=== PATIENT | male | born 1950 | race Caucasian/White ===

== ENCOUNTER 2019-08-24 03:09 | Inpatient (IN) | payer SELFPAY ==
[2019-08-24] VITALS (23 sets, daily range): BP systolic 96–152; BP diastolic 47–73
[~2019-08-24] VITALS: Ht 165.1 cm; Wt 70.8 kg
[2019-08-24] MEDS ORDERED: ONDANSETRON HCL 4MG/2ML INJ IV STA (03:48)
[2019-08-24] MEDS ORDERED: SODIUM CHLORIDE 0.9% 1,000 ML IV ONE (03:48)
[2019-08-24 04:12] LABS: HEMATOCRIT. 54.9 % (42.0-52.0); HEMOGLOBIN. 17.3 g/dL (14.0-18.0); MEAN CORPUSCULAR HEMOGLOBIN 29.9 pg (28.0-32.0); MEAN CORPUSCULAR VOLUME 94.8 fL (80.0-94.0); MEAN PLATELET VOLUME 10.3 fl (7.4-10.4); PLATELET 199 x1000/uL (130-400); RED BLOOD CELL COUNT 5.79 mill/uL (4.7-6.1); RED CELL DISTRIBUTION WIDTH 14.5 % (11.6-14.6)
[2019-08-24 04:20] LABS: CLARITY URINE CLEAR (CLEAR); COLOR URINE YELLOW (YELLOW); KETONES URINE 3+ (NEGATIVE); LEUKOCYTE ESTERASE URINE NEGATIVE (NEGATIVE); NITRITE URINE NEGATIVE (NEGATIVE); OCCULT BLOOD URINE 1+ (NEGATIVE); PROTEIN URINE 1+ (NEGATIVE); SPECIFIC GRAVITY URINE 1.032 (1.005-1.030); UROBILINOGEN URINE 0.2 E.U./dL (0.2-1.0)
[2019-08-24 04:59] LABS: *AMPHETAMINES SCREEN URINE NEGATIVE (NEGATIVE); *BARBITURATES SCREEN URINE NEGATIVE (NEGATIVE); *BENZODIAZEPINES SCREEN URINE NEGATIVE (NEGATIVE); *COCAINE SCREEN URINE NEGATIVE (NEGATIVE); METHADONE URINE SCREEN NEGATIVE (NEGATIVE); OPIATES URINE SCREEN NEGATIVE (NEGATIVE)
[2019-08-24 05:00] LABS: CANNABINOID URINE SCREEN NEGATIVE (NEGATIVE); PHENCYCLIDINE URINE SCREEN NEGATIVE (NEGATIVE)
[2019-08-24] MEDS ORDERED: INSULIN REGULAR (DRIP) 100 UNITS in SODIUM CHLORIDE 0.9% 99 ML IV SCH ×2 (05:30→06:00)
[2019-08-24 05:39] LABS: BG CARBOXYHEMOGLOBIN 0.1 % (0.5-1.5); BG DEOXYHEMOGLOBIN 6.4 % (0.0-5.0); BG FRACTION INSPIRED OXYGEN 21; BG HCO3 ACT 4.3 mmol/L (22.0-26.0); BG METHEMOGLOBIN 0.3 % (0.0-1.5); BG OXYGEN SATURATION 93.6 % (92.0-98.5); BG OXYHEMOGLOBIN 93.2 % (94.0-97.0); BG PCO2 15.5 mmHg (35.0-45.0); BG PH 7.058 (7.350-7.450); BG PO2 79.9 mmHg (75.0-100.0); BG SAMPLE SITE RIGHT RADIAL; BG TOTAL HEMOGLOBIN 17.2 g/dL (12.0-18.0); BG VENT MODE ROOM AIR
[2019-08-24 06:17] LABS: CHLORIDE 103 mEq/L (98-107)
[2019-08-24 06:26] LABS: ETHANOL BLOOD < 10 mg/dL
[2019-08-24] MEDS ORDERED: AZITHROMYCIN 500 MG in DEXT 5% WATER 250 ML IV ONE (06:45)
[2019-08-24] MEDS ORDERED: SODIUM CHLORIDE 0.9% 1000ML BAG (SEPSIS BOLUS) IV ONE (06:45)
[2019-08-24] MEDS ORDERED: CEFTRIAXONE 1 G PREMIX 50 ML IV ONE (06:45)
[2019-08-24] MEDS ORDERED: CEFTRIAXONE 1 G PREMIX 50 ML IV SCH (08:15)
[2019-08-24] MEDS ORDERED: ONDANSETRON HCL 4MG/2ML INJ IV PRN (08:15)
[2019-08-24 08:16] LABS: PLATELET ESTIMATE NORMAL
[2019-08-24 08:53] LABS: PHOSPHORUS 3.2 mg/dL (2.5-4.9)
[2019-08-24] MEDS ORDERED: AZITHROMYCIN 500 MG TABLET PO SCH (09:00)
[2019-08-24] MEDS: SODIUM CHLORIDE 0.9% 1,000 ML IV SCH ×2 (09:48→12:14)
[2019-08-24] MEDS ORDERED: INSULIN REGULAR (DRIP) 100 UNITS in SODIUM CHLORIDE 0.9% 99 ML IV PRN (12:00)
[2019-08-24] MEDS: ENOXAPARIN 40MG/0.4ML SYR SUBCUT SCH (12:13)
[2019-08-24] MEDS: PANTOPRAZOLE SODIUM 40 MG/VIAL IV SCH (12:14)
[2019-08-24 13:16] LABS: CHLORIDE 118 mEq/L (98-107)
[2019-08-24] MEDS: DEXT 5%/0.45% NACL 1000ML 1,000 ML IV SCH ×2 (14:46→23:55)
[2019-08-24] MEDS: POTASSIUM CHLORIDE 20MEQ TABLET SR PO NR ×2 (14:46→18:10)
[2019-08-24] MEDS: LACTULOSE 20G/30ML UDC PO SCH ×2 (14:46→22:00)
[2019-08-24 16:36] LABS: CHLORIDE 121 mEq/L (98-107)
[2019-08-24] MEDS ORDERED: POTASSIUM CHLORIDE 20MEQ TABLET SR PO NR (18:00)
[2019-08-24] MEDS: TAMSULOSIN HCL 0.4MG SR CAPSULE PO SCH (18:11)
[2019-08-24] MEDS ORDERED: DEXTROSE 50% WATER 50ML SYRINGE IV PRN ×2 (18:45)
[2019-08-24] MEDS: BLOOD SUGAR DIAGNOSTIC STRIP TEST SCH ×6 (19:19→23:52)
[2019-08-24] MEDS ORDERED: POTASSIUM CHLORIDE INJ 40 MEQ in DEXT 5% WATER 250 ML IV NR (19:30)
[2019-08-24 20:35] LABS: CHLORIDE 119 mEq/L (98-107)
[2019-08-24] MEDS: INSULIN REGULAR (DRIP) 100 UNITS in SODIUM CHLORIDE 0.9% 100 ML IV SCH ×2 (21:18→22:14)
[2019-08-24] MEDS ORDERED: RACEPINEPHRINE 2.25% 0.5ML NEB VIAL HHN PRN (23:30)
[2019-08-24 23:54] LABS: BG CARBOXYHEMOGLOBIN 0.8 % (0.5-1.5); BG DEOXYHEMOGLOBIN 7.9 % (0.0-5.0); BG FRACTION INSPIRED OXYGEN 32; BG HCO3 ACT 15.1 mmol/L (22.0-26.0); BG METHEMOGLOBIN 0.2 % (0.0-1.5); BG OXYHEMOGLOBIN 91.1 % (94.0-97.0); BG PCO2 28.7 mmHg (35.0-45.0); BG PO2 54.8 mmHg (75.0-100.0); BG SAMPLE SITE RIGHT RADIAL; BG TOTAL HEMOGLOBIN 15.4 g/dL (12.0-18.0); BG VENT MODE NASAL CANNULA
[2019-08-25] VITALS (55 sets, daily range): BP systolic 90–211; BP diastolic 43–151
[2019-08-25 01:13] LABS: CHLORIDE 119 mEq/L (98-107)
[2019-08-25] MEDS: BLOOD SUGAR DIAGNOSTIC STRIP TEST SCH ×25 (01:16→23:46)
[2019-08-25] MEDS ORDERED: KCL 20MEQ/100ML PREMIX 100 ML IV SCH ×2 (04:00→06:00)
[2019-08-25 05:32] LABS: CHLORIDE 121 mEq/L (98-107)
[2019-08-25 05:33] LABS: HEMATOCRIT. 43.7 % (42.0-52.0); HEMOGLOBIN. 14.9 g/dL (14.0-18.0); MEAN CORPUSCULAR HEMOGLOBIN 30.1 pg (28.0-32.0); MEAN CORPUSCULAR VOLUME 88.2 fL (80.0-94.0); MEAN PLATELET VOLUME 10.3 fl (7.4-10.4); PLATELET 135 x1000/uL (130-400); RED BLOOD CELL COUNT 4.96 mill/uL (4.7-6.1); RED CELL DISTRIBUTION WIDTH 13.7 % (11.6-14.6)
[2019-08-25] MEDS: LACTULOSE 20G/30ML UDC PO SCH (06:13)
[2019-08-25] MEDS: DEXT 5%/0.45% NACL 1000ML 1,000 ML IV SCH ×3 (06:28→17:39)
[2019-08-25 06:41] LABS: PHOSPHORUS 0.9 mg/dL (2.5-4.9)
[2019-08-25] MEDS ORDERED: CEFTRIAXONE 1 G PREMIX 50 ML IV SCH (08:00)
[2019-08-25 08:25] LABS: CHLORIDE 120 mEq/L (98-107)
[2019-08-25] MEDS: CEFTRIAXONE 1 G PREMIX 50 ML IV SCH (09:35)
[2019-08-25] MEDS: TAMSULOSIN HCL 0.4MG SR CAPSULE PO SCH (09:36)
[2019-08-25] MEDS: METOPROLOL TARTRATE 25MG TABLET PO SCH ×3 (09:36→21:00)
[2019-08-25] MEDS: PANTOPRAZOLE SODIUM 40 MG/VIAL IV SCH (09:36)
[2019-08-25] MEDS: AZITHROMYCIN 500 MG TABLET PO SCH (09:37)
[2019-08-25] MEDS: ENOXAPARIN 40MG/0.4ML SYR SUBCUT SCH (09:38)
[2019-08-25 09:52] LABS: BG BASE EXCESS -9.2 mmol/L (-2.0-2.0); BG CARBOXYHEMOGLOBIN 0.3 % (0.5-1.5); BG FRACTION INSPIRED OXYGEN 100; BG HCO3 ACT 15.4 mmol/L (22.0-26.0); BG METHEMOGLOBIN 0.4 % (0.0-1.5); BG OXYHEMOGLOBIN 96.3 % (94.0-97.0); BG PCO2 30.5 mmHg (35.0-45.0); BG PO2 93.8 mmHg (75.0-100.0); BG SAMPLE SITE RIGHT RADIAL; BG TOTAL HEMOGLOBIN 15.8 g/dL (12.0-18.0); BG VENT MODE MASK - NRB
[2019-08-25] MEDS ORDERED: POTASSIUM PHOS,M-BASIC-D-BASIC 20 MMOL in DEXT 5% WATER 243.3333 ML IV SCH (12:00)
[2019-08-25 12:50] LABS: CHLORIDE 121 mEq/L (98-107)
[2019-08-25 13:45] LABS: PLATELET ESTIMATE NORMAL
[2019-08-25] MEDS: DEXAMETHASONE 10 MG/ML VIAL IV SCH (14:54)
[2019-08-25 19:51] LABS: CHLORIDE 119 mEq/L (98-107)
[2019-08-25] MEDS: ALBUTEROL 6.7GM HFA INHALER ORI SCH (20:00)
[2019-08-25] MEDS: ENOXAPARIN 80MG/0.8ML SYR SUBCUT SCH (22:04)
[2019-08-25] MEDS ORDERED: HYDRALAZINE 20MG/ML VIAL IV PRN (22:15)
[2019-08-25] MEDS: INSULIN REGULAR (DRIP) 100 UNITS in SODIUM CHLORIDE 0.9% 100 ML IV SCH (23:25)
[2019-08-25] MEDS ORDERED: HALOPERIDOL LACTATE 5MG/ML VIAL IM PRN (23:30)
[2019-08-25 23:32] LABS: CHLORIDE 118 mEq/L (98-107)
[2019-08-26] VITALS (98 sets, daily range): BP systolic 80–189; BP diastolic 50–159
[2019-08-26 00:22] LABS: BG CARBOXYHEMOGLOBIN 0.4 % (0.5-1.5); BG DEOXYHEMOGLOBIN 10.8 % (0.0-5.0); BG FRACTION INSPIRED OXYGEN 100; BG METHEMOGLOBIN 0.1 % (0.0-1.5); BG OXYGEN SATURATION 89.1 % (92.0-98.5); BG OXYHEMOGLOBIN 88.7 % (94.0-97.0); BG PCO2 45.3 mmHg (35.0-45.0); BG PH 7.263 (7.350-7.450); BG PO2 52.1 mmHg (75.0-100.0); BG SAMPLE SITE RIGHT RADIAL; BG TOTAL HEMOGLOBIN 16.3 g/dL (12.0-18.0); BG VENT MODE MASK - NRB
[2019-08-26] MEDS: BLOOD SUGAR DIAGNOSTIC STRIP TEST SCH ×14 (00:45→20:47)
[2019-08-26] MEDS: DEXT 5%/0.45% NACL 1000ML 1,000 ML IV SCH ×2 (01:34→10:04)
[2019-08-26] MEDS: PROPOFOL 10MG/ML 100ML 100 ML IV PRN ×2 (02:51→06:19)
[2019-08-26 03:56] LABS: BG BASE EXCESS -5.4 mmol/L (-2.0-2.0); BG CARBOXYHEMOGLOBIN 0.2 % (0.5-1.5); BG FRACTION INSPIRED OXYGEN 100; BG HCO3 ACT 20.5 mmol/L (22.0-26.0); BG METHEMOGLOBIN 0.2 % (0.0-1.5); BG OXYHEMOGLOBIN 94.6 % (94.0-97.0); BG PCO2 41.2 mmHg (35.0-45.0); BG PH 7.314 (7.350-7.450); BG PO2 67.3 mmHg (75.0-100.0); BG SAMPLE SITE RIGHT RADIAL; BG TIDAL VOLUME(mL) 450 mL; BG TOTAL HEMOGLOBIN 16.1 g/dL (12.0-18.0); BG VENT MODE VENT - A/C; BG VENT RATE 16 set
[2019-08-26] MEDS: ACETAMINOPHEN 650MG/20.3ML UDC PO PRN (04:44)
[2019-08-26] MEDS: ALBUTEROL 6.7GM HFA INHALER ORI SCH ×5 (05:10→16:45)
[2019-08-26 05:23] LABS: CHLORIDE 116 mEq/L (98-107)
[2019-08-26 05:26] LABS: HEMATOCRIT. 44.1 % (42.0-52.0); MEAN CORPUSCULAR HEMOGLOBIN 29.9 pg (28.0-32.0); MEAN CORPUSCULAR VOLUME 88.3 fL (80.0-94.0); MEAN PLATELET VOLUME 9.9 fl (7.4-10.4); PLATELET 124 x1000/uL (130-400); RED CELL DISTRIBUTION WIDTH 14.2 % (11.6-14.6)
[2019-08-26 05:28] LABS: D-DIMER 1.91 mg/L FEU (<0.50); INR 1.1; PHOSPHORUS 1.5 mg/dL (2.5-4.9); PROTHROMBIN TIME 11.9 sec (9.6-11.0)
[2019-08-26 06:54] LABS: C REACTIVE PROTEIN QUANT > 190.0 mg/L (0.0-3.0)
[2019-08-26] MEDS: CEFTRIAXONE 1 G PREMIX 50 ML IV SCH (07:11)
[2019-08-26] MEDS: PANTOPRAZOLE SODIUM 40 MG/VIAL IV SCH (08:21)
[2019-08-26] MEDS: DEXAMETHASONE 10 MG/ML VIAL IV SCH (08:22)
[2019-08-26] MEDS: AZITHROMYCIN 500 MG TABLET PO SCH (08:22)
[2019-08-26] MEDS: METOPROLOL TARTRATE 25MG TABLET PO SCH ×2 (08:23→20:38)
[2019-08-26] MEDS: TAMSULOSIN HCL 0.4MG SR CAPSULE PO SCH (08:24)
[2019-08-26] MEDS: ENOXAPARIN 80MG/0.8ML SYR SUBCUT SCH ×2 (08:25→20:39)
[2019-08-26 09:16] LABS: PLATELET ESTIMATE NORMAL
[2019-08-26 09:43] LABS: BG BASE EXCESS -4.8 mmol/L (-2.0-2.0); BG CARBOXYHEMOGLOBIN 0.4 % (0.5-1.5); BG DEOXYHEMOGLOBIN 1.4 % (0.0-5.0); BG FRACTION INSPIRED OXYGEN 100; BG HCO3 ACT 19.8 mmol/L (22.0-26.0); BG METHEMOGLOBIN 0.1 % (0.0-1.5); BG OXYGEN SATURATION 98.6 % (92.0-98.5); BG OXYHEMOGLOBIN 98.1 % (94.0-97.0); BG PCO2 35.2 mmHg (35.0-45.0); BG PH 7.367 (7.350-7.450); BG PO2 127.4 mmHg (75.0-100.0); BG SAMPLE SITE RIGHT RADIAL; BG TIDAL VOLUME(mL) 450 mL; BG TOTAL HEMOGLOBIN 14.2 g/dL (12.0-18.0); BG VENT MODE VENT - A/C; BG VENT RATE 16 set
[2019-08-26] MEDS ORDERED: DEXTROSE 50% WATER 50ML SYRINGE IV PRN (10:15)
[2019-08-26] MEDS: MIDAZOLAM HCL 100 MG in DEXT 5% WATER 80 ML IV PRN (10:40)
[2019-08-26] MEDS: SODIUM CHLORIDE 0.45% 1,000 ML IV SCH (10:45)
[2019-08-26] MEDS ORDERED: INSULIN GLARGINE UD 100 UNITS/ML SYR SUBCUT NR (11:30)
[2019-08-26] MEDS: INSULIN LISPRO 100 UNITS/ML SUBCUT SCH ×3 (11:38→20:52)
[2019-08-26] MEDS ORDERED: LIDOCAINE HCL 1% 20ML VIAL (Pyxis) INJ ONE (14:05)
[2019-08-26] MEDS ORDERED: SODIUM PHOS,M-BASIC-D-BASIC 20 MM in DEXT 5% WATER 243.3333 ML IV NR (14:30)
[2019-08-27] VITALS (75 sets, daily range): BP systolic 76–128; BP diastolic 48–81
[2019-08-27] MEDS ORDERED: NOREPINEPHRINE 8MG in DEXT 5% WATER 250ML (DOUBLE CONC) IV PRN (03:00)
[2019-08-27 06:10] LABS: CHLORIDE 110 mEq/L (98-107)
[2019-08-27] MEDS: INSULIN LISPRO 100 UNITS/ML SUBCUT SCH ×3 (07:00→17:36)
[2019-08-27 07:50] LABS: HEMATOCRIT. 43.1 % (42.0-52.0); HEMOGLOBIN. 14.6 g/dL (14.0-18.0); MEAN CORPUSCULAR HEMOGLOBIN 29.8 pg (28.0-32.0); MEAN CORPUSCULAR VOLUME 88.2 fL (80.0-94.0); MEAN PLATELET VOLUME 11.1 fl (7.4-10.4); PLATELET 151 x1000/uL (130-400); RED BLOOD CELL COUNT 4.89 mill/uL (4.7-6.1)
[2019-08-27] MEDS ORDERED: INSULIN GLARGINE UD 100 UNITS/ML SYR SUBCUT ONE (08:00)
[2019-08-27] MEDS: CEFTRIAXONE 1 G PREMIX 50 ML IV SCH (08:03)
[2019-08-27] MEDS: PANTOPRAZOLE SODIUM 40 MG/VIAL IV SCH (08:29)
[2019-08-27] MEDS: DEXAMETHASONE 10 MG/ML VIAL IV SCH (08:29)
[2019-08-27] MEDS: METOPROLOL TARTRATE 25MG TABLET PO SCH ×3 (08:30→21:00)
[2019-08-27 08:31] LABS: BG CARBOXYHEMOGLOBIN 0.1 % (0.5-1.5); BG DEOXYHEMOGLOBIN 5.7 % (0.0-5.0); BG HCO3 ACT 10.8 mmol/L (22.0-26.0); BG METHEMOGLOBIN 0.3 % (0.0-1.5); BG OXYGEN SATURATION 94.3 % (92.0-98.5); BG OXYHEMOGLOBIN 93.9 % (94.0-97.0); BG PCO2 23.7 mmHg (35.0-45.0); BG PH 7.276 (7.350-7.450); BG PO2 76.3 mmHg (75.0-100.0); BG SAMPLE SITE RIGHT RADIAL; BG TIDAL VOLUME(mL) 450 mL; BG TOTAL HEMOGLOBIN 14.6 g/dL (12.0-18.0); BG VENT MODE VENT - A/C; BG VENT RATE 16 set
[2019-08-27] MEDS: AZITHROMYCIN 500 MG TABLET PO SCH (08:31)
[2019-08-27] MEDS: TAMSULOSIN HCL 0.4MG SR CAPSULE PO SCH (08:31)
[2019-08-27] MEDS: MIDODRINE HCL 5MG TABLET PO SCH ×3 (08:39→17:05)
[2019-08-27] MEDS: ALBUTEROL 6.7GM HFA INHALER ORI SCH ×4 (08:44→20:57)
[2019-08-27] MEDS: ENOXAPARIN 80MG/0.8ML SYR SUBCUT SCH ×2 (09:00→21:45)
[2019-08-27 09:57] LABS: BG SAMPLE SITE Right Radial
[2019-08-27 09:58] LABS: BG FRACTION INSPIRED OXYGEN 100; BG PEEP (cmH2O) 5 cmH2O; BG TIDAL VOLUME(mL) 450 mL; BG TOTAL RESPIRATORY RATE 40 b/min; BG VENT MODE VENT-A/C; BG VENT RATE 16 set
[2019-08-27 10:04] LABS: BG BASE EXCESS -6.5 mmol/L (-2.0-2.0); BG HCO3 ACT 18.1 mmol/L (22.0-26.0); BG PCO2 33.9 mmHg (35.0-45.0); BG PO2 73.4 mmHg (75.0-100.0)
[2019-08-27 10:05] LABS: BG CARBOXYHEMOGLOBIN 0.1 % (0.5-1.5); BG DEOXYHEMOGLOBIN 5.4 % (0.0-5.0); BG METHEMOGLOBIN 0.1 % (0.0-1.5); BG OXYGEN SATURATION 94.6 % (92.0-98.5); BG OXYHEMOGLOBIN 94.4 % (94.0-97.0); BG TOTAL HEMOGLOBIN 14.8 g/dL (12.0-18.0)
[2019-08-27 10:06] LABS: BG PH 7.346 (7.350-7.450)
[2019-08-27] MEDS ORDERED: SODIUM BICARBONATE 8.4% 1 MEQ/ML 50ML SYR IV NR (11:00)
[2019-08-27] MEDS: BLOOD SUGAR DIAGNOSTIC STRIP TEST SCH ×2 (11:30→16:30)
[2019-08-27] MEDS: SODIUM CHLORIDE 0.45% 1,000 ML IV SCH (12:55)
[2019-08-27 13:48] LABS: PLATELET ESTIMATE NORMAL
[2019-08-27] MEDS: FENTANYL CITRATE/PF 1,000 MCG in SODIUM CHLORIDE 0.9% 80 ML IV PRN (13:55)
[2019-08-27] MEDS: PHENYLEPHRINE 40 MG in DEXT 5% WATER 246 ML IV PRN ×3 (15:32→22:00)
[2019-08-27] MEDS: MIDAZOLAM HCL 100 MG in DEXT 5% WATER 80 ML IV PRN (18:15)
[2019-08-27] MEDS ORDERED: DEXTROSE 50% WATER 50ML SYRINGE IV PRN (18:45)
[2019-08-27] MEDS ORDERED: BLOOD SUGAR DIAGNOSTIC STRIP TEST SCH (19:00)
[2019-08-27] MEDS ORDERED: INSULIN LISPRO 100 UNITS/ML SUBCUT SCH ×2 (19:00)
[2019-08-27] MEDS ORDERED: INSULIN GLARGINE UD 100 UNITS/ML SYR SUBCUT SCH ×2 (22:00)
[2019-08-28] VITALS (97 sets, daily range): BP systolic 80–125; BP diastolic 52–73
[2019-08-28] MEDS ORDERED: BLOOD SUGAR DIAGNOSTIC STRIP TEST SCH (00:01)
[2019-08-28] MEDS: BLOOD SUGAR DIAGNOSTIC STRIP TEST SCH ×4 (00:19→17:38)
[2019-08-28] MEDS: ALBUTEROL 6.7GM HFA INHALER ORI SCH ×2 (00:20→20:10)
[2019-08-28] MEDS: INSULIN LISPRO 100 UNITS/ML SUBCUT SCH ×8 (00:28→18:08)
[2019-08-28 05:03] LABS: HEMATOCRIT. 38.6 % (42.0-52.0); HEMOGLOBIN. 13.6 g/dL (14.0-18.0); MEAN CORPUSCULAR HEMOGLOBIN 30.2 pg (28.0-32.0); MEAN CORPUSCULAR VOLUME 85.5 fL (80.0-94.0); MEAN PLATELET VOLUME 9.9 fl (7.4-10.4); PLATELET 170 x1000/uL (130-400); RED BLOOD CELL COUNT 4.51 mill/uL (4.7-6.1); RED CELL DISTRIBUTION WIDTH 13.9 % (11.6-14.6)
[2019-08-28 05:08] LABS: CHLORIDE 115 mEq/L (98-107)
[2019-08-28] MEDS: CEFTRIAXONE 1 G PREMIX 50 ML IV SCH (07:21)
[2019-08-28] MEDS: PHENYLEPHRINE 40 MG in DEXT 5% WATER 246 ML IV PRN (07:59)
[2019-08-28] MEDS ORDERED: POTASSIUM CHLORIDE 20MEQ TABLET SR PO SCH (08:00)
[2019-08-28 08:01] LABS: PLATELET ESTIMATE NORMAL
[2019-08-28] MEDS: PANTOPRAZOLE SODIUM 40 MG/VIAL IV SCH (08:18)
[2019-08-28] MEDS: METOPROLOL TARTRATE 25MG TABLET PO SCH ×2 (08:19→21:00)
[2019-08-28] MEDS: AZITHROMYCIN 500 MG TABLET PO SCH (08:20)
[2019-08-28] MEDS: TAMSULOSIN HCL 0.4MG SR CAPSULE PO SCH (08:20)
[2019-08-28] MEDS: ENOXAPARIN 80MG/0.8ML SYR SUBCUT SCH ×2 (08:21→21:36)
[2019-08-28] MEDS: DEXAMETHASONE 10 MG/ML VIAL IV SCH (08:21)
[2019-08-28] MEDS: MIDODRINE HCL 5MG TABLET PO SCH ×3 (08:24→16:28)
[2019-08-28] MEDS ORDERED: DOCUSATE SODIUM 250MG CAPSULE PO SCH (09:00)
[2019-08-28] MEDS ORDERED: KCL 20MEQ/100ML PREMIX 100 ML IV SCH (09:00)
[2019-08-28] MEDS: FENTANYL CITRATE/PF 1,000 MCG in SODIUM CHLORIDE 0.9% 80 ML IV PRN ×2 (09:18→21:43)
[2019-08-28 09:36] LABS: BG BASE EXCESS 3.4 mmol/L (-2.0-2.0); BG CARBOXYHEMOGLOBIN 0.3 % (0.5-1.5); BG FRACTION INSPIRED OXYGEN 90; BG HCO3 ACT 27.7 mmol/L (22.0-26.0); BG METHEMOGLOBIN 0.3 % (0.0-1.5); BG OXYGEN SATURATION 89.9 % (92.0-98.5); BG OXYHEMOGLOBIN 89.4 % (94.0-97.0); BG PH 7.448 (7.350-7.450); BG PO2 52.8 mmHg (75.0-100.0); BG SAMPLE SITE RIGHT RADIAL; BG TIDAL VOLUME(mL) 450 mL; BG TOTAL HEMOGLOBIN 14.6 g/dL (12.0-18.0); BG VENT MODE VENT - A/C; BG VENT RATE 20 set
[2019-08-28] MEDS: DOCUSATE SODIUM SUGAR FREE 100MG/10ML UDC NG SCH (10:04)
[2019-08-28] MEDS: INSULIN GLARGINE UD 100 UNITS/ML SYR SUBCUT SCH ×2 (10:05→21:39)
[2019-08-28] MEDS: MIDAZOLAM HCL 100 MG in DEXT 5% WATER 80 ML IV PRN ×2 (12:49→23:35)
[2019-08-28] MEDS: SODIUM CHLORIDE 0.45% 1,000 ML IV SCH (13:00)
[2019-08-28] MEDS: PHENYLEPHRINE 80 MG in DEXT 5% WATER 492 ML IV PRN ×2 (15:23→23:38)
[2019-08-28] MEDS: ACETAMINOPHEN 650MG/20.3ML UDC PO PRN ×2 (15:58→21:37)
[2019-08-28] MEDS ORDERED: REMDESIVIR 200 MG in SODIUM CHLORIDE 0.9% 250 ML IV NR (16:00)
[2019-08-28] MEDS: NOREPINEPHRINE 8MG in DEXT 5% WATER 250ML (DOUBLE CONC) IV PRN (17:51)
[2019-08-29] VITALS (96 sets, daily range): BP systolic 85–133; BP diastolic 54–80
[2019-08-29] MEDS: BLOOD SUGAR DIAGNOSTIC STRIP TEST SCH ×4 (00:11→17:07)
[2019-08-29] MEDS: INSULIN LISPRO 100 UNITS/ML SUBCUT SCH ×8 (00:11→17:14)
[2019-08-29] MEDS: ALBUTEROL 6.7GM HFA INHALER ORI SCH ×6 (00:18→21:00)
[2019-08-29 05:27] LABS: HEMATOCRIT. 37.9 % (42.0-52.0); HEMOGLOBIN. 13.1 g/dL (14.0-18.0); MEAN CORPUSCULAR HEMOGLOBIN 30.1 pg (28.0-32.0); MEAN CORPUSCULAR VOLUME 86.9 fL (80.0-94.0); MEAN PLATELET VOLUME 10.6 fl (7.4-10.4); PLATELET 122 x1000/uL (130-400); RED BLOOD CELL COUNT 4.36 mill/uL (4.7-6.1); RED CELL DISTRIBUTION WIDTH 14.5 % (11.6-14.6)
[2019-08-29] MEDS: CEFTRIAXONE 1 G PREMIX 50 ML IV SCH (07:00)
[2019-08-29] MEDS: PHENYLEPHRINE 80 MG in DEXT 5% WATER 492 ML IV PRN ×2 (07:17→14:58)
[2019-08-29 08:09] LABS: BG BASE EXCESS -0.5 mmol/L (-2.0-2.0); BG CARBOXYHEMOGLOBIN 0.4 % (0.5-1.5); BG DEOXYHEMOGLOBIN 6.3 % (0.0-5.0); BG HCO3 ACT 24.1 mmol/L (22.0-26.0); BG METHEMOGLOBIN 0.2 % (0.0-1.5); BG OXYGEN SATURATION 93.7 % (92.0-98.5); BG OXYHEMOGLOBIN 93.1 % (94.0-97.0); BG PCO2 39.3 mmHg (35.0-45.0); BG PH 7.405 (7.350-7.450); BG PO2 61.9 mmHg (75.0-100.0); BG SAMPLE SITE RIGHT RADIAL; BG TIDAL VOLUME(mL) 450 mL; BG TOTAL HEMOGLOBIN 13.3 g/dL (12.0-18.0); BG VENT MODE VENT - A/C; BG VENT RATE 18 set
[2019-08-29] MEDS: DOCUSATE SODIUM SUGAR FREE 100MG/10ML UDC NG SCH (09:51)
[2019-08-29] MEDS: PANTOPRAZOLE SODIUM 40 MG/VIAL IV SCH (09:51)
[2019-08-29] MEDS: DEXAMETHASONE 10 MG/ML VIAL IV SCH (09:51)
[2019-08-29] MEDS: ENOXAPARIN 80MG/0.8ML SYR SUBCUT SCH ×2 (09:52→20:49)
[2019-08-29] MEDS: MIDODRINE HCL 5MG TABLET PO SCH ×3 (09:52→17:13)
[2019-08-29] MEDS: METOPROLOL TARTRATE 25MG TABLET PO SCH ×2 (09:52→21:00)
[2019-08-29] MEDS: TAMSULOSIN HCL 0.4MG SR CAPSULE PO SCH (09:52)
[2019-08-29] MEDS: ACETAMINOPHEN 650MG/20.3ML UDC PO PRN ×2 (10:05→20:48)
[2019-08-29] MEDS: INSULIN GLARGINE UD 100 UNITS/ML SYR SUBCUT SCH ×2 (11:00→22:50)
[2019-08-29] MEDS: SODIUM CHLORIDE 0.45% 1,000 ML IV SCH ×3 (11:00→21:45)
[2019-08-29] MEDS: MIDAZOLAM HCL 100 MG in DEXT 5% WATER 80 ML IV PRN ×2 (11:26→21:48)
[2019-08-29 12:17] LABS: NUCLEATED RED BLOOD CELLS 2 /100 WBC; PLATELET ESTIMATE SLIGHTLY DECREASED
[2019-08-29] MEDS ORDERED: REMDESIVIR 100 MG in SODIUM CHLORIDE 0.9% 250 ML IV SCH (14:00)
[2019-08-29] MEDS: FENTANYL CITRATE/PF 1,000 MCG in SODIUM CHLORIDE 0.9% 80 ML IV PRN ×2 (14:56→22:04)
[2019-08-29] MEDS: NOREPINEPHRINE 8MG in DEXT 5% WATER 250ML (DOUBLE CONC) IV PRN (20:48)
[2019-08-30] VITALS: BP 96/56
[2019-08-30] MEDS: BLOOD SUGAR DIAGNOSTIC STRIP TEST SCH (00:03)
[2019-08-30 00:15] VITALS: BP 99/55
[2019-08-30] MEDS: INSULIN LISPRO 100 UNITS/ML SUBCUT SCH ×2 (00:22→00:23)
[2019-08-30 00:30] VITALS: BP 94/52
[2019-08-30 00:45] VITALS: BP 70/47
[2019-08-30] MEDS: ALBUTEROL 6.7GM HFA INHALER ORI SCH (00:45)
[2019-08-30] MEDS ORDERED: DEXAMETHASONE 10 MG/ML VIAL IV SCH (09:00)
== END 2019-08-30 01:46 | disposition expired | DRG 720 ==
LOC: ER 03:09 → MICUSO 05:25 → EDBD 05:25 → ENRESERV 08:09
PROVIDERS: ADMIT Internal Medicine; ATTEND Internal Medicine
PROC: 05HY33Z Insertion of Infusion Device into Upper Vein, Percutaneous Approach (ICD-10-PCS; principal; 2019-08-26)
PROC: B54MZZA Ultrasonography of Right Upper Extremity Veins, Guidance (ICD-10-PCS; 2019-08-26)
PROC: 5A12012 Performance of Cardiac Output, Single, Manual (ICD-10-PCS; 2019-08-30)
DX: A41.89 Other specified sepsis (principal); J96.00 Acute respiratory failure, unspecified whether with hypoxia or hypercapnia; U07.1 COVID-19; N17.0 Acute kidney failure with tubular necrosis; E43 Unspecified severe protein-calorie malnutrition; E11.10 Type 2 diabetes mellitus with ketoacidosis without coma; R65.21 Severe sepsis with septic shock; G93.41 Metabolic encephalopathy; E86.9 Volume depletion, unspecified; I46.9 Cardiac arrest, cause unspecified; J12.89 Other viral pneumonia; E87.1 Hypo-osmolality and hyponatremia; Z60.2 Problems related to living alone; J44.0 Chronic obstructive pulmonary disease with (acute) lower respiratory infection; E83.39 Other disorders of phosphorus metabolism; T38.0X5A Adverse effect of glucocorticoids and synthetic analogues, initial encounter; Y92.89 Other specified places as the place of occurrence of the external cause; Z68.26 Body mass index [BMI] 26.0-26.9, adult; Z79.899 Other long term (current) drug therapy
CPT/HCPCS: 36415; 36600; 71045; 76937; 80048; 80053; 80305; 80307; 80320; 80329; 81003; 82010; 82140; 82375; 82728; 82805; 82962; 83036; 83605; 83615; 83735; 83880; 83930; 84100; 84145; 84478; 84484; 85025; 85379; 86140; 86850; 86900; 86927; 93005; 99291; C1725; C9113; J0360; J0456; J0696; J1100; J1650; J1815; J2250; J2370; J2405; J2704; J3010; J3480; J3490; J7030; J7050; J7060; P9017; Q9957; G0480; U0003-CS